=== PATIENT | male | born 1980 | race Caucasian/White ===

== ENCOUNTER → 2017-01-29 | Outpatient (CLI) | payer BC ==
[2017-01-29 16:20] LABS: Bilirubin, Delta 0.2 mg/dL (0.0-0.2); Total Bilirubin 2.1 mg/dL (0.2-1.3); Total Protein 7.5 g/dL (6.3-8.2)
[2017-01-30 15:10] LABS: Hepatits C Virus RNA, Quant <12 IU/mL (<12); LOG HCV IU/mL <1.08 (<1.08)
== END | disposition home or self-care (01) ==
LOC: LABWHC1 15:50
PROVIDERS: ATTEND Physician Assistant
DX: B18.2 Chronic viral hepatitis C (principal)
CPT/HCPCS: 36415; 80076; 87522

== ENCOUNTER → 2020-08-03 | Outpatient (CLI) | payer OTHER ==
--- NOTE | 2020-08-03 13:01 | CT ---
EXAMINATION TYPE: CT chest w con DATE OF EXAM: 08/03/2020 COMPARISON: NONE HISTORY: Abnormal findings on outside CXR CT DLP: 707 mGycm. Automated Exposure Control for Dose Reduction was Utilized. TECHNIQUE: CT scan of the thorax is performed following with IV Contrast, patient injected with 100 mL of Isovue 300. FINDINGS: LUNGS: Some focal anterior right basilar pleural thickening. No suspicious focal consolidation or kaylan undglass opacity. There is no significant pleural effusion or pneumothorax seen bilaterally. No francisco rning nodules or masses. The tracheobronchial tree is patent. MEDIASTINUM: There are no greater than 1 cm hilar or mediastinal lymph nodes. No cardiomegaly or pe ricardial effusion is seen. Some residual thymus tissue in the anterior superior mediastinum axial i mage 22 somewhat unusual for patient's age. OTHER: Small degree of subareolar gynecomastia incidentally noted. IMPRESSION: No suspicious nodules or masses. No concerning of acute pulmonary process. Some residual thymus tissue is noted unusual for patient's age otherwise unremarkable study. If outside x-ray and/or report become available an addendum may be issued.
== END | disposition home or self-care (01) ==
LOC: RADCTMAIN 12:19
PROVIDERS: ATTEND Family Medicine
DX: R93.89 Abnormal findings on diagnostic imaging of other specified body structures (principal)
CPT/HCPCS: 71260; Q9967

== ENCOUNTER → 2020-09-07 | Outpatient (CLI) | payer OTHER ==
[2020-09-07 10:38] LABS: Basophils % (A) 1 %; Eosinophils # (A) 0.1 k/uL (0-0.7); Eosinophils % (A) 2 %; HCT 43.9 % (39.0-53.0); Lymphocytes # (A) 1.7 k/uL (1.0-4.8); Lymphocytes % (A) 26 %; MCH 31.3 pg (25.0-35.0); MCHC 34.1 g/dL (31.0-37.0); MCV 91.8 fL (80.0-100.0); Mean Platelet Volume 6.9; Monocytes # (A) 0.4 k/uL (0-1.0); Monocytes % (A) 6 %; Neutrophils # (A) 4.3 k/uL (1.3-7.7); Neutrophils % (A) 65 %; Platelet Count 279 k/uL (150-450); RBC 4.78 m/uL (4.30-5.90); RDW 11.6 % (11.5-15.5); WBC 6.7 k/uL (3.8-10.6)
[2020-09-07 15:10] LABS: Chol/HDL Ratio 2.82; Cholesterol 144 mg/dL (0-200); Triglycerides <50.0 mg/dL (0.0-149.0)
== END | disposition home or self-care (01) ==
LOC: LABWHC1 09:35
PROVIDERS: ATTEND Family Medicine
DX: N52.9 Male erectile dysfunction, unspecified (principal); B18.2 Chronic viral hepatitis C
CPT/HCPCS: 36415; 80061; 84402; 84403; 84439; 84443; 85025; 87522